=== PATIENT | female | born 1950 | race Caucasian/White ===

== ENCOUNTER 2021-01-17 11:29 | Day surgery (SDC) | payer MEDICARE, OTHER ==
[~2021-01-17 11:29] MED LIST: Midazolam 1 MG/ML 2 ML SDV ONE; Propofol 200 MG/20 ML SDV ONE
[2021-01-17] MEDS ORDERED: Sodium Chloride 0.9% 10 ML Syringe FLUSH PRN (11:45)
--- NOTE | 2021-01-17 13:04 | PCM.PREANE ---
Preanesthetic Assessment - Anesthesia/Transfusion/Family Hx Anesthesia History: Prior Anesthesia Without Reaction Family History of Anesthesia Reaction: No - Physical Assessment NPO Status Date: 01/17/21 NPO Status Time: 00:01 Vital Signs: Last Vital Signs Temp 97.6 F 01/17/21 12:00 Pulse Resp 19 01/17/21 12:18 BP 128/68 01/17/21 12:18 Pulse Ox 100 01/17/21 12:18 ASA Class: 2 Mental Status: Alert & Oriented x3 Airway Class: Mallampati = 2 ROM/Head Extension: Limited/Partial Lungs: Normal Respiratory Effort Cardiovascular: Irregular Rhythm - Anesthesia Plan Pre-Op Medication Ordered: None - Acknowledgements Anesthesia Type Planned: General Anesthesia Pt an Appropriate Candidate for the Planned Anesthesia: Yes Alternatives and Risks of Anesthesia Discussed w Pt/Guardian: Yes Pt/Guardian Understands and Agrees with Anesthesia Plan: Yes Additional Comments: preop performed prior to cardioversion computer [employer] inop npo after mn tob none etoh none obesity bmi 37 htn hx back surgery atrial flutter for a month on eliquis par no questions PreAnesthesia Questionnaire - CURRENT (IN HOUSE) MEDS Current Meds: Current Medications Discontinued Medications Midazolam HCl (Midazolam 1 Mg/Ml 2 Ml Sdv) Confirm Administered Dose 2 mg .ROUTE .STK-MED ONE Stop: 01/17/21 11:19 Propofol (Propofol 200 Mg/20 Ml Sdv) Confirm Administered Dose 200 mg .ROUTE .STK-MED ONE Stop: 01/17/21 11:19
--- NOTE | 2021-01-17 13:05 | PCM.POSTAN ---
POST ANESTHESIA ASSESSMENT - MENTAL STATUS Mental Status: Alert (no anesthetic problems), Oriented - VITAL SIGNS Vital Signs: Last Vital Signs Temp 97.6 F 01/17/21 12:00 Pulse Resp 19 01/17/21 12:18 BP 128/68 01/17/21 12:18 Pulse Ox 100 01/17/21 12:18 - RESPIRATORY Respiratory Status: Respiratory Rate WNL, Airway Patent, O2 Saturation Stable - CARDIOVASCULAR CV Status: Pulse Rate WNL, Blood Pressure Stable - GASTROINTESTINAL GI Status: No Symptoms - POST OP HYDRATION Hydration Status: Adequate & Stable
[2021-01-17] MEDS ORDERED: Sodium Chloride 0.9% 10 ML SDV IV PRN (16:52)
--- NOTE | 2021-01-18 07:24 | PCM48HPAN ---
Post Anesthesia Note - EVALUATION WITHIN 48HRS OF ANESTHETIC Vital Signs in Normal Range: Yes Patient Participated in Evaluation: Yes Respiratory Function Stable: Yes Airway Patent: Yes Cardiovascular Function Stable: Yes Hydration Status Stable: Yes Pain Control Satisfactory: Yes Nausea and Vomiting Control Satisfactory: Yes Mental Status Recovered: Yes Vital Signs: Last Vital Signs Temp 97.6 F 01/17/21 12:00 Pulse Resp 13 01/17/21 15:00 BP 139/66 01/17/21 15:00 Pulse Ox 97 01/17/21 15:00
--- NOTE | 2021-01-18 07:44 | PCM.PRNOTE ---
- Free Text/Narrative Note: PROCEDURE: Direct current cardioversion. REASON FOR PROCEDURE: symptomatic persistent atrial flutter/atypical atrial fibrillation PROCEDURE IN DETAIL: The procedure was explained to the patient with risks and benefits including risk of stroke. The patient verbalized understanding. The patient had already been on anticoagulation including the day of the procedure more than 4 weeks without interruption. The pads applied in the anterior and posterior approach. With synchronized biphasic waveform at 100J, one shock was delivered and the rhythm was converted to ectopic atrial rhythm HR improved to 50s. The patient had no immediate post-procedure complications. The rhythm was maintained and 12-lead EKG was requested. IMPRESSION: Successful direct current cardioversion with scientology of sinus rhythm from atrial flutter with no immediate complication. Plan 1. post procedure observation for 6 hours 2. continue anticoagulation at least 4 weeks, without interruption 3. follow up outpt 2-4 weeks
== END 2021-01-17 16:00 | disposition home or self-care (01) ==
LOC: MW.SDS 11:29
PROVIDERS: ATTEND Internal Medicine
DX: I48.92 Unspecified atrial flutter (principal); R00.1 Bradycardia, unspecified; M54.2 Cervicalgia; M54.9 Dorsalgia, unspecified; G89.29 Other chronic pain; I10 Essential (primary) hypertension; E78.5 Hyperlipidemia, unspecified; E11.9 Type 2 diabetes mellitus without complications; E66.9 Obesity, unspecified; Z68.37 Body mass index [BMI] 37.0-37.9, adult; Z87.891 Personal history of nicotine dependence
CPT/HCPCS: 93005; J2250; J2704